=== PATIENT | female | born 1985 | race Caucasian/White ===

== ENCOUNTER → 2018-02-20 | Outpatient (CLI) | payer OTHER ==
[~2018-02-20] MED LIST: BALZIVA1 EACH PO; CYCLOBENZAPRINE10 MG PO; ENDOCET 5-3251 EACH PO; FLAGYL500 MG; GUAIFEN-CODEIN120 ML PO; HYDROCODON-ACE1 EAC7 PO; MELOXICAM7.5 MG PO; MOBIC15 MG PO; NAPROSYN500 MG PO; NEURONTIN 300300 M1 PO; NORCO 10-325 T1 EACH PO; OMEPRAZOLE 20 M20 M1 PO; PERCOCET 7.5-31 EACH PO; PHILITH PO; SENOKOT-S1 TA1 PO; TESSALON PERLE100 MG PO; UNICOMPLEX M TA1 TA1 PO; WELLBUTRIN XL300 MG PO; XANAX 0.5 MG0.5 MG PO
== END ==
LOC: ULTRA 07:56
DX: D25.9 Leiomyoma of uterus, unspecified (principal)

== ENCOUNTER 2019-12-16 09:36 | Emergency (ER) | payer OTHER ==
[~2019-12-16] VITALS: Ht 175.3 cm; Wt 122.5 kg
[2019-12-16 10:16] LABS: CREATININE 0.8 mg/dL (0.6-1.0)
[2019-12-16 10:17] LABS: ABSOLUTE NEUTROPHILS 7.9 thou/uL (1.4-8.2); EOSINOPHILS 1.2 % (0.0-3.0); HEMATOCRIT 38.4 % (37.0-47.0); HEMOGLOBIN 12.5 gm/dL (12.0-15.0); LYMPHOCYTES 27.7 % (24.0-44.0); MCHC 32.4 g/dL (28.0-37.0); MCV 86.4 fL (80.0-100.0); MONOCYTES 3.2 % (1.0-8.0); PLATELET COUNT 379 thou/uL (150-400); POLYS 66.9 % (36.0-66.0); POTASSIUM 3.9 mmol/L (3.5-5.1); RBC 4.45 mil/uL (4.20-5.00); RDW 12.9 % (10.5-14.5); WBC 11.7 thou/uL (4.0-11.0)
[2019-12-16 10:21] LABS: ALBUMIN 3.3 g/dL (3.4-5.0); TOTAL BILIRUBIN 0.4 mg/dL (<0.1-1.0); TOTAL PROTEIN 7.4 g/dL (6.4-8.2)
[2019-12-16 13:33] VITALS: BP 173/64
== END 2019-12-16 13:33 | disposition home or self-care (01) ==
LOC: ER 09:36
PROVIDERS: Emergency Medicine
DX: R42 Dizziness and giddiness (principal); R20.2 Paresthesia of skin; I10 Essential (primary) hypertension; K21.9 Gastro-esophageal reflux disease without esophagitis; F41.9 Anxiety disorder, unspecified; F32.9 Major depressive disorder, single episode, unspecified; Z90.49 Acquired absence of other specified parts of digestive tract

== ENCOUNTER → 2019-12-23 | Outpatient (CLI) | payer OTHER | LOC: MRI 13:04 | DX: R90.82 White matter disease, unspecified (principal); G93.89 Other specified disorders of brain; R20.0 Anesthesia of skin; R20.2 Paresthesia of skin; H53.9 Unspecified visual disturbance; R42 Dizziness and giddiness ==

== ENCOUNTER → 2019-12-24 | Outpatient (CLI) | payer OTHER | LOC: MRI 12:38 | PROVIDERS: ATTEND Nurse Practitioner | DX: M50.23 Other cervical disc displacement, cervicothoracic region (principal); M48.02 Spinal stenosis, cervical region; R20.0 Anesthesia of skin ==

== ENCOUNTER → 2019-12-28 | Outpatient (CLI) | payer OTHER ==
--- NOTE | 2019-12-28 11:19 | NUR ---
PT TOLERATED PROCEDURE WELL. DC'D PER WHEELCHAIR AT 1110. VSS. HR 78. BP 146/75. RR 18. DRESSING CLEAN DRY INTACT. VERBALIZES UNDERSTANDING OF DC INST. DRINKING WATER. NO HEADACHE
[2019-12-28 12:19] LABS: VOLUME 11.5 ml
[2019-12-28 12:20] LABS: CSF WBC 3 /mm3 (0-10)
[2019-12-28 12:21] LABS: CSF RBC 273 /mm3
== END ==
LOC: RAD 08:41
PROVIDERS: Nurse Practitioner
DX: G95.89 Other specified diseases of spinal cord (principal)

== ENCOUNTER → 2020-01-19 | Outpatient (CLI) | payer OTHER | LOC: MRI 11:29 | DX: M51.85 Other intervertebral disc disorders, thoracolumbar region (principal); G35 Multiple sclerosis; M51.25 Other intervertebral disc displacement, thoracolumbar region ==

== ENCOUNTER → 2020-05-13 | Outpatient (CLI) | payer OTHER | LOC: MRI 11:25 | DX: M51.85 Other intervertebral disc disorders, thoracolumbar region (principal) ==

== ENCOUNTER 2020-08-25 16:08 | Emergency (ER) | payer OTHER ==
[~2020-08-25] VITALS: Ht 177.8 cm; Wt 124.7 kg
[2020-08-25] MEDS ORDERED: BRINTELLIX20 MG PO (17:13)
[2020-08-25] MEDS ORDERED: BALZIVA1 EACH PO (17:13)
[2020-08-25] MEDS ORDERED: MAGNESIUM250 M1 PO (17:14)
[2020-08-25] MEDS ORDERED: AVONEX30 MCG/0.1 IM (17:14)
[2020-08-25] MEDS ORDERED: PROTONIX 20 MG20 M1 PO (17:14)
[2020-08-25] MEDS ORDERED: AMBIEN 10 MG TA10 MG PO (17:39)
[2020-08-25 18:00] VITALS: BP 151/93
== END 2020-08-25 18:00 | disposition home or self-care (01) ==
LOC: ER 16:08
DX: G47.00 Insomnia, unspecified (principal); I10 Essential (primary) hypertension; K21.9 Gastro-esophageal reflux disease without esophagitis; Z90.49 Acquired absence of other specified parts of digestive tract; Z79.899 Other long term (current) drug therapy

== ENCOUNTER → 2020-11-17 | Outpatient (CLI) | payer OTHER ==
[~2020-11-17] MED LIST changes: +AMBIEN 10 MG TA10 MG PO; +AVONEX30 MCG/0.1 IM; +BRINTELLIX20 MG PO; +MAGNESIUM250 M1 PO; +PROTONIX 20 MG20 M1 PO
== END ==
LOC: LAB 14:22
PROVIDERS: ATTEND Nurse Practitioner
DX: R11.2 Nausea with vomiting, unspecified (principal); M79.10 Myalgia, unspecified site; Z20.822 Contact with and (suspected) exposure to COVID-19

== ENCOUNTER 2020-11-20 17:07 | Emergency (ER) | payer OTHER ==
[~2020-11-20] VITALS: Ht 177.8 cm; Wt 124.7 kg
[2020-11-20 20:51] VITALS: BP 157/103
== END 2020-11-20 20:51 | disposition home or self-care (01) ==
LOC: ER 17:07
DX: M54.5 Low back pain (principal); K64.9 Unspecified hemorrhoids; I10 Essential (primary) hypertension; K21.9 Gastro-esophageal reflux disease without esophagitis; Z79.899 Other long term (current) drug therapy

== ENCOUNTER 2020-11-29 14:31 | Emergency (ER) | payer OTHER ==
[~2020-11-29] VITALS: Ht 177.8 cm; Wt 124.7 kg
[2020-11-29 14:44] LABS: URINE BILIRUBIN NEGATIVE (Negative); URINE BLOOD NEGATIVE (Negative); URINE CLARITY CLEAR; URINE COLOR YELLOW; URINE GLUCOSE-RANDOM* NEGATIVE (Negative); URINE KETONES NEGATIVE (Negative); URINE LEUKOCYTES-REFLEX NEGATIVE (Negative); URINE NITRITE-REFLEX NEGATIVE (Negative); URINE PROTEIN (DIPSTICK) NEGATIVE (Negative); URINE SPECIFIC GRAVITY <= 1.005 (1.005-1.035); URINE UROBILINOGEN 0.2 E.U./dl (0.2-1.0)
[2020-11-29 15:31] LABS: HEMATOCRIT 37.6 % (37.0-47.0); HEMOGLOBIN 12.2 gm/dL (12.0-15.0); MCH 27.5 pg (26.0-34.0); MCHC 32.3 g/dL (28.0-37.0); RBC 4.43 mil/uL (4.20-5.00); RDW 12.9 % (10.5-14.5); WBC 8.8 thou/uL (4.0-11.0)
[2020-11-29 15:41] LABS: CALCIUM 9.4 mg/dL (8.5-10.1); CREATININE 0.9 mg/dL (0.6-1.0)
[2020-11-29 16:23] VITALS: BP 147/90
== END 2020-11-29 16:41 | disposition home or self-care (01) ==
LOC: ER 14:31
PROVIDERS: Nurse Practitioner Family
DX: R10.9 Unspecified abdominal pain (principal); I10 Essential (primary) hypertension; K21.9 Gastro-esophageal reflux disease without esophagitis; Z79.899 Other long term (current) drug therapy

== ENCOUNTER 2021-04-19 12:54 | Emergency (ER) | payer OTHER ==
[~2021-04-19] VITALS: Ht 177.8 cm; Wt 122.5 kg
[2021-04-19 16:08] LABS: URINE BILIRUBIN NEGATIVE (Negative); URINE BLOOD 1+ (Negative); URINE CLARITY CLEAR; URINE COLOR YELLOW; URINE GLUCOSE-RANDOM* NEGATIVE (Negative); URINE KETONES NEGATIVE (Negative); URINE LEUKOCYTES-REFLEX NEGATIVE (Negative); URINE NITRITE-REFLEX NEGATIVE (Negative); URINE PROTEIN (DIPSTICK) NEGATIVE (Negative); URINE UROBILINOGEN 0.2 E.U./dl (0.2-1.0)
[2021-04-19 16:31] LABS: CASTS None Seen /LPF (None Seen); SQUAMOUS 4-10 Moderate /LPF (0-3); URINE WBC-REFLEX 0-5 Rare /HPF (0-5)
[2021-04-19 16:32] LABS: CRYSTALS None Seen /LPF (None Seen); URINE RBC 1-2 Rare /HPF (NONE SEEN)
[2021-04-19] MEDS ORDERED: MELOXICAM7.5 MG PO (17:18)
[2021-04-19] MEDS ORDERED: BACLOFEN 10MG T10 MG PO (17:19)
[2021-04-19] MEDS ORDERED: CATAPRES0.2 MG PO (17:19)
[2021-04-19] MEDS ORDERED: NEURONTIN300 MG PO (17:20)
[2021-04-19] MEDS ORDERED: HYDROCODONE (17:20)
[2021-04-19 17:54] LABS: CALCIUM 9.3 mg/dL (8.5-10.1); CREATININE 0.8 mg/dL (0.6-1.0); POTASSIUM 4.2 mmol/L (3.5-5.1)
[2021-04-19 18:01] LABS: ALBUMIN 3.2 g/dL (3.4-5.0); TOTAL BILIRUBIN 0.2 mg/dL (0.2-1.0); TOTAL PROTEIN 7.3 g/dL (6.4-8.2)
[2021-04-19] MEDS ORDERED: PERCOCET PO (19:42)
[2021-04-19 21:02] VITALS: BP 159/93
== END 2021-04-19 21:03 | disposition home or self-care (01) ==
LOC: ER 12:54
PROVIDERS: Nurse Practitioner; Student in an Organized Health Care Education/Training Program
DX: G89.29 Other chronic pain (principal); M54.5 Low back pain; F41.9 Anxiety disorder, unspecified; I10 Essential (primary) hypertension; F32.9 Major depressive disorder, single episode, unspecified; K21.9 Gastro-esophageal reflux disease without esophagitis; Z90.49 Acquired absence of other specified parts of digestive tract; Z98.890 Other specified postprocedural states; Z79.899 Other long term (current) drug therapy